=== PATIENT | female | born 1930 | race Caucasian/White ===

== ENCOUNTER 2016-09-29 08:29 | Observation (INO) | payer MEDICARE, MEDICAID ==
[~2016-09-29 08:29] MED LIST: ALBUTEROL2.5 MG/0.1 IH; AMLODIPINE BES2.5 M1 PO; ANTIVERT12.5 M1 PO; ARTIFICIAL TEAR15 M EACH EYE; COLACE100 M1 PO; COUMADIN1 MG; COUMADIN1 MG PO; COUMADIN2 M1 PO; COUMADIN2 MG; COUMADIN2 MG PO; COUMADIN3 MG; COUMADIN3 MG PO; DARVOCET-N 1001 TAB PO; DIGITEK125 MC2 PO; DIGOXIN125 MCG; DIGOXIN125 MCG PO; DILTIAZEM 24HR120 M1 PO; DIOVAN HCT 160/1 TA1 PO; DIOVAN HCT 160/1 TAB; DIOVAN HCT 320/1 TAB PO; DIOVAN320 M1 PO; DULCOLAX10 MG RC; INDERAL40 MG; INDERAL40 MG PO; K-TAB ER10 MEQ PO; LANOXIN125 MC1 PO; LEVAQUIN750 M1 PO; MACROBID 100 M100 M1 PO; MIRALAX17 G2 PO; MULTIVITAMINS1 EAC7 PO; NORCO 5/325 TAB1 TAB PO; NORCO 7.5/3251 TAB PO; NORVASC2.5 M1 PO; POTASSIUM CHLO10 ME2 PO; PREDNISONE5 MG PO; PROPRANOLOL HCL40 M2 PO; TYLENOL PM EX-S1 TAB PO; TYLENOL500 MG PO; VALSARTAN-HCTZ1 EA13 PO; VALTREX1000 MG PO; VITAMIN D PO; [UNRECOGNIZED DRUG - OTHER] PO
[2016-09-29] MEDS ORDERED: TYLENOL PM EX-1 EAC4 PO (08:34)
[2016-09-29] MEDS ORDERED: CERTAVITE SR-A1 EACH PO (08:35)
[2016-09-29] MEDS ORDERED: MICROZIDE12.5 M1 PO (08:36)
[2016-09-29] MEDS ORDERED: COZAAR100 M1 PO (08:38)
[2016-09-29] MEDS ORDERED: COUMADIN1 M1 PO (08:40)
[2016-09-29] MEDS ORDERED: TYLENOL325 M2 PO (08:43)
[2016-09-29] MEDS ORDERED: ACEPHEN650 MG PR (08:43)
[2016-09-29] MEDS ORDERED: LIQUITEARS15 M1 OP (08:44)
[2016-09-29] MEDS ORDERED: ARTIFICIAL TEAR1512 EACH EYE (08:44)
[2016-09-29] MEDS ORDERED: NITROSTAT0.4 M1 SL (08:45)
[2016-09-29] MEDS ORDERED: MIRALAX17 G2 PO (08:45)
[2016-09-29] MEDS ORDERED: ULTRAM50 M1 PO (08:46)
[2016-09-29 09:35] LABS: BASO % 0.8 % (0-2); BASO ABSOLUTE COUNT 0.1 tho/cmm (0.0-0.2); EOS % 3.6 % (0-7); EOSINOPHIL ABSOLUTE COUNT 0.3 tho/cmm (0.0-0.7); HCT-HEMATOCRIT 39.6 % (34.0-49.0); HGB-HEMOGLOBIN 12.9 gm/dl (12.0-15.5); IMMATURE GRANULOCYTES ABSOLUTE 0.06 tho/cmm (0-0.03); IMMATURE GRANULOCYTES PERCENT 0.8 % (0-0.3); LYMPH % 25.7 % (20-45); MCH (MEAN CORPUSCULAR HGB) 29.2 pg (28.0-32.0); MCHC MEAN CORPUSCULAR HGB CONC 32.6 % (32.0-36.0); MCV (MEAN CELL VOLUME) 89.6 fl (82.0-96.0); MEAN PLATELET VOLUME 9.9 cmc (9.4-12.4); MONO % 6.8 % (0-12); MONOCYTE ABSOLUTE COUNT 0.5 tho/cmm (0.0-1.2); NEUTROPHIL ABSOLUTE COUNT 4.9 tho/cmm (1.6-8.0); NEUTROPHIL-AUTOMATED 4.9 tho/cmm (1.6-8.0); NEUTROPHILS % 62.3 % (40-80); PLATELET COUNT 146 tho/cmm (150-450); RED BLOOD COUNT 4.42 mil/cmm (4.00-5.20); RED CELL DISTRIBUTION WIDTH 14.8 % (12.4-16.4); WHITE BLOOD COUNT 7.8 tho/cmm (4.0-10.0)
[2016-09-29 09:41] LABS: INR 2.5 INR (0.9-1.1); PROTHROMBIN TIME 29.9 SECONDS (9.0-13.6)
[2016-09-29 09:53] LABS: ANION GAP 12 mmol/L (0-20); BLOOD UREA NITROGEN 11 mg/dl (6-24); CALCIUM 8.6 mg/dl (8.5-10.5); CARBON DIOXIDE-VENOUS 27 mmol/L (22-32); CHLORIDE 106 mmol/l (96-110); CREATININE 0.78 mg/dl (0.50-1.10); GLUCOSE 120 mg/dL (70-110); POTASSIUM 3.7 mmol/L (3.7-5.1); SODIUM 141 mmol/L (135-145); eGFR VALUE FOR BLACK 79 mL/Min
[2016-09-29 10:05] LABS: URINE BILIRUBIN NEGATIVE (NEG); URINE BLOOD LARGE (NEG); URINE GLUCOSE (UA) NEGATIVE (NEG); URINE KETONE NEGATIVE (NEG); URINE LEUKOCYTE ESTERASE POSITIVE (NEG); URINE NITRITE POSITIVE (NEG); URINE PROTEIN NEGATIVE (NEG); URINE SPECIFIC GRAVITY 1.015 (1.003-1.030)
[2016-09-29 10:09] LABS: URINE APPEARANCE HAZY; URINE COLOR YELLOW
[2016-09-29 10:12] LABS: URINE BACTERIA 4+
[2016-09-30] MEDS ORDERED: CIPRO250 M2 PO (12:06)
[2016-09-30] MEDS ORDERED: PROTONIX40 M2 PO (12:17)
[2016-11-30] MEDS ORDERED: TYLENOL PM EX-1 EAC4 PO ×2 (11:49→11:53)
[2016-11-30] MEDS ORDERED: HYDROCHLOROTH12.5 M2 PO (11:50)
[2016-11-30] MEDS ORDERED: NORVASC5 M2 PO (11:50)
[2016-11-30] MEDS ORDERED: ARTIFICIAL TEAR1512 OP (11:50)
[2016-11-30] MEDS ORDERED: COLACE100 M1 PO (11:50)
[2016-11-30] MEDS ORDERED: CERTAVITE-ANTI1 EACH PO (11:50)
[2016-11-30] MEDS ORDERED: PROTONIX40 M2 PO (11:51)
[2016-11-30] MEDS ORDERED: POTASSIUM CHLO10 ME2 PO (11:51)
[2016-11-30] MEDS ORDERED: LOSARTAN POTAS100 M1 PO (11:51)
[2016-11-30] MEDS ORDERED: PROPRANOLOL HCL40 M2 PO (11:52)
[2016-11-30] MEDS ORDERED: COUMADIN2 M1 PO (11:52)
[2016-11-30] MEDS ORDERED: COUMADIN1 M1 PO (11:52)
[2016-11-30] MEDS ORDERED: ACEPHEN650 MG PR (11:52)
[2016-11-30] MEDS ORDERED: TYLENOL325 M2 PO (11:53)
[2016-11-30] MEDS ORDERED: MILK OF MAGNESIA PO (11:54)
[2016-11-30] MEDS ORDERED: LIQUITEARS15 M1 OP (11:54)
[2016-11-30] MEDS ORDERED: NITROGLYCERIN0.4 M2 SL (11:55)
[2016-11-30] MEDS ORDERED: POLYETHYLENE GL17 G1 PO (11:55)
[2016-11-30] MEDS ORDERED: ULTRAM50 M1 PO (11:55)
== END 2016-09-30 13:10 ==
LOC: EDMED 08:29 → EMR2 11:49 → CAR1 12:20
PROVIDERS: Emergency Medicine; ADMIT Internal Medicine Cardiovascular Disease
DX: R07.89 Other chest pain (principal); N39.0 Urinary tract infection, site not specified; I48.2 Chronic atrial fibrillation; I10 Essential (primary) hypertension; E78.5 Hyperlipidemia, unspecified; I27.2 Other secondary pulmonary hypertension; I08.3 Combined rheumatic disorders of mitral, aortic and tricuspid valves; M19.90 Unspecified osteoarthritis, unspecified site; Z82.49 Family history of ischemic heart disease and other diseases of the circulatory system; Z88.1 Allergy status to other antibiotic agents; Z79.01 Long term (current) use of anticoagulants; Z79.899 Other long term (current) drug therapy
CPT/HCPCS: A9500; C8929; G0378; J2785